=== PATIENT | female | born 2000 | race Two or more races ===

== ENCOUNTER 2019-03-29 22:02 | Emergency (ER) | payer MEDICAID ==
[~2019-03-29] VITALS: Ht 157.5 cm; Wt 59.0 kg
[2019-03-29 22:11] VITALS: Ht 157.5 cm; Wt 59.0 kg
[2019-03-29 23:21] VITALS: BP 116/69
== END 2019-03-29 23:21 | disposition home or self-care (01) ==
LOC: ED 22:02
DX: F10.129 Alcohol abuse with intoxication, unspecified (principal); R11.10 Vomiting, unspecified